=== PATIENT | male | born 1975 | race African-American/Black ===

== ENCOUNTER 2023-05-31 19:23 | Emergency (ER) | payer SELFPAY ==
[~2023-05-31] VITALS: Ht 172.7 cm; Wt 250.0 kg
[2023-05-31 19:26] VITALS: O2SAT 98
[2023-05-31] MEDS ORDERED: ACETAMINOPHEN 650MG/20.3ML UDC PO ONE (19:45)
[2023-05-31] MEDS ORDERED: KETOROLAC 30MG/ML VIAL IM ONE (19:45)
[2023-05-31 22:20] VITALS: BP 154/86; PULSE 81; RESP 16; TEMP 98.3
== END 2023-05-31 22:41 | disposition home or self-care (01) ==
LOC: ER 19:23
DX: S83.91XA Sprain of unspecified site of right knee, initial encounter (principal); X58.XXXA Exposure to other specified factors, initial encounter; Y93.89 Activity, other specified; Y92.89 Other specified places as the place of occurrence of the external cause; Y99.8 Other external cause status
CPT/HCPCS: 93971; 73564; 96372; 99285; J1885; Z7610 ×2; L1830